=== PATIENT | male | born 2000 | race Caucasian/White ===

== ENCOUNTER 2025-10-06 19:52 | Emergency (ER) | payer OTHER ==
[~2025-10-06] VITALS: Ht 195.6 cm; Wt 138.6 kg
[2025-10-06 20:16] LABS: BASO # 0.0 10^3/uL (0.0-0.2); BASO % 0.4 % (0.0-1.0); EOS # 0.1 10^3/uL (0.0-0.5); EOS % 0.8 % (0.0-3.0); LYMPH # 4.1 10^3/uL (1.5-5.0); LYMPH % 41.5 % (24.0-44.0); MONO # 0.8 10^3/uL (0.0-0.8); MONO % 8.5 % (2.0-8.0); NEUTROPHILS # 4.8 10^3/uL (1.5-8.5); NEUTROPHILS % 48.5 % (36.0-66.0); PLATELET COUNT, AUTOMATED 298 10^3/uL (150-450)
[2025-10-06 20:38] LABS: INR 1.02
[2025-10-06 20:40] LABS: CALCIUM LEVEL 9.2 MG/DL (8.5-10.1); CARBON DIOXIDE LEVEL 29 MMOL/L (20-31); CHLORIDE LEVEL 103 MMOL/L (98-107); CK-MB VALUE MASS < 1.0 NG/ML (<3.6); CREATININE FOR GFR 1.06 MG/DL (0.70-1.30); GLOMERULAR FILTRATION RATE > 90.0 (>60); POTASSIUM SERUM 4.1 MMOL/L (3.5-5.1); SODIUM LEVEL 140 MMOL/L (136-145)
[2025-10-06 20:43] LABS: CPK CREATINE PHOSPHOKINASE 89 U/L (46-171)
[2025-10-06 21:51] LABS: CK-MB VALUE MASS < 1.0 NG/ML (<3.6); CPK CREATINE PHOSPHOKINASE 96 U/L (46-171)
[2025-10-07 00:30] VITALS: BP 122/70; TEMP 97.2; O2SAT 97
== END 2025-10-07 00:44 | disposition home or self-care (01) ==
LOC: M ED 19:52
DX: R07.9 Chest pain, unspecified (principal); Z91.030 Bee allergy status